=== PATIENT | male | born 1980 | race American Indian/Alaskan Native ===

== ENCOUNTER 2018-07-27 17:58 | Emergency (ER) | payer BC ==
[2018-07-27 18:47] VITALS: BP 152/94
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
== END 2018-07-27 18:57 | disposition home or self-care (01) ==
LOC: ED 17:58
DX: K02.9 Dental caries, unspecified (principal); K05.10 Chronic gingivitis, plaque induced
CPT/HCPCS: 99282

== ENCOUNTER 2020-01-22 17:12 | Emergency (ER) | payer OTHER, BC ==
[2020-01-22 17:17] VITALS: BP 149/83
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
[2020-01-22] MEDS ORDERED: KETOROLAC 30 MG/1 ML INJ ONE (18:26)
[2020-01-22] MEDS ORDERED: KETOROLAC 30 MG/1 ML INJ IM ONE (18:26)
== END 2020-01-22 18:47 | disposition home or self-care (01) ==
LOC: ED 17:12
DX: M79.18 Myalgia, other site (principal); Z79.899 Other long term (current) drug therapy; V89.2XXA Person injured in unspecified motor-vehicle accident, traffic, initial encounter; Y93.89 Activity, other specified; Y92.410 Unspecified street and highway as the place of occurrence of the external cause; Y99.8 Other external cause status
CPT/HCPCS: 96372; 99282; J1885

== ENCOUNTER 2020-03-11 10:46 | Emergency (ER) | payer BC, OTHER ==
[2020-03-11 11:47] VITALS: BP 163/91
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
== END 2020-03-11 21:53 | disposition home or self-care (01) ==
LOC: ED 10:46
DX: R19.7 Diarrhea, unspecified (principal); R11.2 Nausea with vomiting, unspecified; R03.0 Elevated blood-pressure reading, without diagnosis of hypertension; Z98.890 Other specified postprocedural states; Z79.1 Long term (current) use of non-steroidal anti-inflammatories (NSAID); Z79.2 Long term (current) use of antibiotics; Z79.899 Other long term (current) drug therapy
CPT/HCPCS: 99282

== ENCOUNTER 2021-10-30 10:49 | Emergency (ER) | payer SELFPAY ==
[2021-10-30] MEDS ORDERED: oxyCODONE /ACETAMINOPHEN 5-325MG TAB PO ONE (12:19)
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
[2021-10-30 15:12] VITALS: BP 142/85
== END 2021-10-30 17:09 | disposition home or self-care (01) ==
LOC: ED 10:49
DX: M25.511 Pain in right shoulder (principal); Z98.890 Other specified postprocedural states; Z79.899 Other long term (current) drug therapy
CPT/HCPCS: 99282